=== PATIENT | male | born 1990 | race African-American/Black ===

== ENCOUNTER 2019-08-08 12:18 | Emergency (ER) | payer OTHER ==
[~2019-08-08] VITALS: Ht 177.8 cm; Wt 88.0 kg
[2019-08-08 12:43] LABS: BASOPHILS % 0.8 % (0.0-2.0); EOSINOPHILS % 3.6 % (0.0-5.0); HEMATOCRIT. 45.8 % (42.0-52.0); HEMOGLOBIN. 15.5 g/dL (14.0-18.0); LYMPHOCYTES % 47.7 % (20.0-50.0); MEAN CORPUSCULAR HEMOGLOBIN 31.4 pg (28.0-32.0); MEAN CORPUSCULAR VOLUME 92.8 fL (80.0-94.0); MEAN PLATELET VOLUME 7.9 fl (7.4-10.4); MONOCYTES % 13.4 % (2.0-8.0); NEUTROPHILS % 34.5 % (40.0-76.0); PLATELET 241 x1000/uL (130-400); RED BLOOD CELL COUNT 4.94 mill/uL (4.7-6.1); RED CELL DISTRIBUTION WIDTH 14.9 % (11.6-14.6)
[2019-08-08 12:47] LABS: CLARITY URINE CLEAR (CLEAR); COLOR URINE YELLOW (YELLOW); KETONES URINE TRACE (NEGATIVE); LEUKOCYTE ESTERASE URINE NEGATIVE (NEGATIVE); NITRITE URINE NEGATIVE (NEGATIVE); OCCULT BLOOD URINE NEGATIVE (NEGATIVE); PH URINE 6.5 (4.5-8.0); PROTEIN URINE TRACE (NEGATIVE); SPECIFIC GRAVITY URINE 1.018 (1.005-1.030)
[2019-08-08 12:51] LABS: CHLORIDE 109 mEq/L (98-107)
[2019-08-08 12:54] LABS: ETHANOL BLOOD 146 mg/dL
[2019-08-08 13:06] LABS: *AMPHETAMINES SCREEN URINE PRESUMTIVE POSITIVE (NEGATIVE); *BARBITURATES SCREEN URINE NEGATIVE (NEGATIVE); *BENZODIAZEPINES SCREEN URINE PRESUMTIVE POSITIVE (NEGATIVE)
[2019-08-08 13:07] LABS: *COCAINE SCREEN URINE PRESUMTIVE POSITIVE (NEGATIVE); CANNABINOID URINE SCREEN PRESUMTIVE POSITIVE (NEGATIVE); METHADONE URINE SCREEN NEGATIVE (NEGATIVE); OPIATES URINE SCREEN NEGATIVE (NEGATIVE); PHENCYCLIDINE URINE SCREEN NEGATIVE (NEGATIVE)
[2019-08-08 16:12] VITALS: BP 127/87
== END 2019-08-08 16:32 | disposition home or self-care (01) ==
LOC: ER 12:18
DX: T40.5X1A Poisoning by cocaine, accidental (unintentional), initial encounter (principal); T43.621A Poisoning by amphetamines, accidental (unintentional), initial encounter; F12.10 Cannabis abuse, uncomplicated; F13.10 Sedative, hypnotic or anxiolytic abuse, uncomplicated; F10.129 Alcohol abuse with intoxication, unspecified; V49.88XA Car occupant (driver) (passenger) injured in other specified transport accidents, initial encounter; Y93.89 Activity, other specified; Y92.89 Other specified places as the place of occurrence of the external cause; Y99.8 Other external cause status; Y90.8 Blood alcohol level of 240 mg/100 ml or more
CPT/HCPCS: 36415; 80053; 80305; 80307; 80320; 80329; 81003; 85025; 99285; G0480

== ENCOUNTER 2019-11-17 14:16 | Emergency (ER) | payer MEDICAID ==
[~2019-11-17] VITALS: Ht 180.3 cm; Wt 86.0 kg
[2019-11-17] MEDS ORDERED: IBUPROFEN 600MG TABLET PO ONE (15:00)
[2019-11-17 15:05] VITALS: BP 126/84
== END 2019-11-17 15:35 | disposition home or self-care (01) ==
LOC: ER 14:16
DX: S63.616A Unspecified sprain of right little finger, initial encounter (principal); W18.30XA Fall on same level, unspecified, initial encounter; Y93.67 Activity, basketball; Y92.89 Other specified places as the place of occurrence of the external cause; Y99.8 Other external cause status
CPT/HCPCS: 29130; 73130; 99283

== ENCOUNTER 2022-07-08 13:17 | Emergency (ER) | payer MEDICAID ==
[~2022-07-08] VITALS: Ht 180.3 cm; Wt 86.0 kg
[2022-07-08] MEDS ORDERED: KETOROLAC 60MG/2ML VIAL IM STA (14:34)
[2022-07-08] MEDS ORDERED: HYDROCODONE/ACETAMINOPHEN 5/325MG TABLET PO STA (14:34)
[2022-07-08 15:43] VITALS: BP 155/97
[2022-07-08] MEDS ORDERED: BACITRACIN ZINC OINT UDPKT TOP NR (15:45)
[2022-07-08] MEDS ORDERED: HYDR-4001 PO (15:55)
[2022-07-08] MEDS ORDERED: IBUP-2029 PO (15:55)
[2022-07-08] MEDS ORDERED: BO1 TP (15:55)
== END 2022-07-08 16:58 | disposition home or self-care (01) ==
LOC: ER 13:17
DX: S97.81XA Crushing injury of right foot, initial encounter (principal); S97.01XA Crushing injury of right ankle, initial encounter; S90.511A Abrasion, right ankle, initial encounter; V03.90XA Pedestrian on foot injured in collision with car, pick-up truck or van, unspecified whether traffic or nontraffic accident, initial encounter; Y93.89 Activity, other specified; Y92.488 Other paved roadways as the place of occurrence of the external cause
CPT/HCPCS: 29515; 73610; 73630; 96372; 99284; J1885; Z7610